=== PATIENT | male | born 1995 | race Caucasian/White ===

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

== ENCOUNTER 2017-02-17 17:48 | Emergency (ER) | payer OTHER ==
[~2017-02-17] VITALS: Ht 182.9 cm; Wt 91.0 kg
[~2017-02-17 17:48] MED LIST changes: -DICL50TA3 PO; -ROBA750T PO
[2017-02-17 17:49] VITALS: BP 114/65; PULSE 107; RESP 15; TEMP 97.9; O2SAT 100
--- NOTE | 2017-02-17 18:11 | PD ---
HPI Chief Complaint: Cold / Flu Symptoms Time Seen by Provider: 18:09 Travel History International Travel<30 days: No Contact w/Intl Traveler<30days: No Traveled to known affect area: No History of Present Illness HPI 21-year-old male with history of sudden onset body aches, abdominal discomfort, and vomiting. Patient feels he is dehydrated. Patient has had chills but denies significant fever. He has no upper respiratory symptoms. He has no chest pain or shortness of breath. Patient states he last urinated about 4 hours ago and it was dark. His pain is generalized throughout the abdomen. He denies any blood in his vomitus or diarrhea. He denies pain with urination. His abdominal pain is 8 out of 10. It is cramping In nature. He is allergic to Keflex. PFSH Past Medical History ADHD: Yes Cancer: No Cardiovascular Problems: No Diabetes: No Diminished Hearing: No Endocrine: No Genitourinary: No Hepatitis: No Hiatal Hernia: No Immune Disorder: No Musculoskeletal: Yes (occ dizziness upon standing could be low blood pressure) Neurologic: No Psychiatric: Yes (add) Reproductive: No Respiratory: No Integumentary: Yes (CYST UNDER LEFT ARM BEING FOLLOWED) Immunizations Current: Yes Thyroid Disease: No Past Surgical History AICD: No Genitourinary Surgery: Yes (Hydrocele) Joint Replacement: No Pacemaker: No Other Surgery: Yes (right hydrocele) Social History Alcohol Use: Yes Tobacco Use: Yes Substance Use: Yes Allergies-Medications (Allergen,Severity, Reaction): Coded Allergies: cephalexin (Unverified Adverse Reaction, Severe, N/V, 02/17/17) Reported Meds & Prescriptions Reported Meds & Active Scripts Active Reported Adderall (Amphetamine-Dextroamphetamine) 20 Mg Tab 20 Mg PO DAILY Avoid late evening doses. Space doses at least 4 to 6 hours if more than once/day dosing. Review of Systems Except as stated in HPI: all other systems reviewed are Neg General / Constitutional: Positive: Chills, No: Fever Eyes: No: Visual changes HENT: No: Headaches Cardiovascular: No: Chest Pain or Discomfort Respiratory: No: Cough, Shortness of Breath, Wheezing Gastrointestinal: Positive: Nausea, Vomiting, Abdominal Pain, Indigestion, Loss of Appetite, No: Diarrhea, Hematemesis, Hematochezia, Constipation, Changes in Bowel Habits, Dysphagia Genitourinary: No: Dysuria Musculoskeletal: No: Pain Skin: No Rash Neurologic: No: Weakness Psychiatric: No: Depression Endocrine: No: Polydipsia Hematologic/Lymphatic: No: Easy Bruising Physical Exam Narrative GENERAL: Patient appears ill and in moderate distress. SKIN: Warm. Decreased pallor. Mild diaphoresis. HEAD: Atraumatic. Normocephalic. EYES: Pupils equal and round. No scleral icterus. No injection or drainage. ENT: No nasal bleeding or discharge. Mucous membranes pink and moist. Pharynx is unremarkable. Airway is patent. NECK: Trachea midline. Supple and Nontender. CARDIOVASCULAR: Regular rate and rhythm. No murmurs gallops or rubs. RESPIRATORY: No accessory muscle use. Clear to auscultation. Breath sounds equal bilaterally. GASTROINTESTINAL: Abdomen soft, mild to moderate diffuse tenderness, nondistended. Bowel sounds present in all quadrants. No CVA tenderness. No point tenderness or rebound. Hepatic and splenic margins not palpable. MUSCULOSKELETAL: Extremities without clubbing, cyanosis, or edema. No obvious deformities. NEUROLOGICAL: Awake and alert. No obvious cranial nerve deficits. Motor grossly within normal limits. Five out of 5 muscle strength in the arms and legs. Normal speech. PSYCHIATRIC: Appropriate mood and affect; insight and judgment normal. Data Data Last Documented VS Vital Signs Date Time Temp Pulse Resp B/P (MAP) Pulse Ox O2 Delivery O2 Flow Rate FiO2 02/17/17 18:51 100 02/17/17 17:49 97.9 107 15 Orders Orders Complete Blood Count With Diff (02/17/17 18:17) Comprehensive Metabolic Panel (02/17/17 18:17) Lipase (02/17/17 18:17) Prothrombin Time / Inr (Pt) (02/17/17 18:17) Act Partial Throm Time (Ptt) (02/17/17 18:17) Urinalysis - C+S If Indicated (02/17/17 18:17) Iv Access Insert/Monitor (02/17/17 18:17) Ecg Monitoring (02/17/17 18:17) Oximetry (02/17/17 18:17) Ondansetron Inj (Zofran Inj) (02/17/17 18:30) Sodium Chlor 0.9% 1000 Ml Inj (Ns 1000 M (02/17/17 18:17) Sodium Chloride 0.9% Flush (Ns Flush) (02/17/17 18:30) Famotidine Inj (Pepcid Inj) (02/17/17 18:30) Ketorolac Inj (Toradol Inj) (02/17/17 18:30) Abdomen, Flat & Upright (02/17/17 18:17) Influenzae A/B Antigen (02/17/17 18:17) MDM Medical Decision Making Medical Screen Exam Complete: Yes Emergency Medical Condition: Yes Differential Diagnosis Nausea and vomiting. Influenza. Dehydration. Ileus. Narrative Course Patient is stable at time of exam. Labs ordered including CBC, CMP, lipase, urinalysis, coagulation studies. Rapid influenza as well. IV access is obtained patient is given 30 mg Toradol IV as well as 4 mg Zofran IV, and 1000 mL was normal saline bolus. Abdominal flat and upright x-ray is ordered. 1900 hrs., labs and x-ray are still pending. Patient care is assumed by Ariel Walker [facility] and final disposition will be determined by him. Condition: Stable Lupillo Keen Feb 17, 2017 18:11
[2017-02-17] MEDS ORDERED: SODIUM CHLOR 0.9% 1000 ML INJ 1,000 ML IV SCH (18:17)
[2017-02-17] MEDS ORDERED: FAMOTIDINE 20 MG/2 ML VIAL IV PUSH ONE (18:30)
[2017-02-17] MEDS ORDERED: KETOROLAC TROMETHAMINE 30 MG/ML (IVP) VIAL IVP ONE (18:30)
[2017-02-17] MEDS ORDERED: ONDANSETRON HCL 4 MG/2 ML VIAL IVP ONE (18:30)
[2017-02-17] MEDS ORDERED: SODIUM CHLORIDE 0.9% FLUSH 10 ML FLUSH IV FLUSH PRN (18:30)
[2017-02-17 18:51] VITALS: O2SAT 100
--- NOTE | 2017-02-17 18:53 | RADRPT ---
EXAM DATE/TIME: 02/17/2017 18:28 [place] COMPARISON: No previous studies available for comparison. INDICATIONS : Vomiting for one day. Abdomen pain. MEDICAL HISTORY : None. SURGICAL HISTORY : None. ENCOUNTER: Initial ACUITY: 1 day PAIN SCORE: 7/10 LOCATION: Bilateral abdomen. FINDINGS: The bowel gas is nonspecific. There are no signs of obstruction or free air for technique. No defini te calcified stones are identified for technique. CONCLUSION: Nonspecific abdomen. Kristen Pierre MD on February 17, 2017 at 18:51 Board Certified Radiologist. This report was verified electronically.
[2017-02-17 19:12] LABS: AUTOMATED NEUTROPHIL # 11.4 TH/MM3 (1.8-7.7); BASOPHIL % 0.2 % (0.0-2.0); HEMATOCRIT 43.6 % (39.0-51.0); LYMPH % 1.1 % (9.0-44.0); LYMPHOCYTE # 0.1 TH/MM3 (1.0-4.8); MEAN CELL VOLUME 90.7 FL (80.0-100.0); MEAN CORPUSCULAR HEMOGLOBIN 31.2 PG (27.0-34.0); MEAN CORPUSCULAR HGB CONC 34.4 % (32.0-36.0); MEAN PLATELET VOLUME 7.7 FL (7.0-11.0); MONO % 6.9 % (0.0-8.0); MONOCYTE # 0.9 TH/MM3 (0-0.9); NEUT % 91.8 % (16.0-70.0); PLATELET COUNT 240 TH/MM3 (150-450); RED BLOOD COUNT 4.81 MIL/MM3 (4.50-5.90); RED CELL DISTRIBUTION WIDTH 12.5 % (11.6-17.2); WHITE BLOOD COUNT 12.4 TH/MM3 (4.0-11.0)
[2017-02-17 19:18] LABS: INTERNATIONAL NORMALIZED RATIO 1.1 RATIO; PROTHROMBIN TIME - PATIENT 11.2 SEC (9.8-11.6)
[2017-02-17 19:24] VITALS: BP 134/63; PULSE 100; RESP 20; O2SAT 100
[2017-02-17 19:26] LABS: ALBUMIN 4.6 GM/DL (3.4-5.0); AST (GOT) 25 U/L (15-39); BICARBONATE 25.4 MEQ/L (21.0-32.0); BLOOD UREA NITROGEN 10 MG/DL (7-18); CALCIUM 9.5 MG/DL (8.5-10.1); CHLORIDE 102 MEQ/L (98-107); CREATININE 0.94 MG/DL (0.60-1.30); GLOMERULAR FILTRATION RATE 103 ML/MIN (>89); GLUCOSE,RANDOM 94 MG/DL (74-106); LIPASE 80 U/L (73-393); SODIUM (NA) 137 MEQ/L (136-145)
[2017-02-17 19:27] LABS: ALT (GPT) 93 U/L (9-52)
[2017-02-17 19:29] LABS: ALKALINE PHOSPHATASE 91 U/L (45-117); TOTAL BILIRUBIN ADULT 1.1 MG/DL (0.2-1.0)
[2017-02-17 19:33] LABS: BACTERIA, URINE RARE /hpf; BILIRUBIN, URINE NEG (NEG); BLOOD, URINE NEG (NEG); GLUCOSE,URINE NEG (NEG); KETONE, URINE 150 mg/dL (NEG); MUCUS URINE FEW /lpf (OCC); NITRITE,URINE NEG (NEG); PH, URINE 7.5 (5.0-8.5); SQUAMOUS EPITHELIAL CELL URINE <1 /hpf (0-5); URINE COLOR YELLOW (YELLW/STRAW); URINE LEUKOCYTE ESTERASE NEG (NEG)
--- NOTE | 2017-02-17 19:42 | PD ---
Physical Exam Date Seen by Provider: Feb 17, 2017 Time Seen by Provider: 19:40 Data Data Last Documented VS Vital Signs Date Time Temp Pulse Resp B/P (MAP) Pulse Ox O2 Delivery O2 Flow Rate FiO2 02/17/17 19:24 100 20 134/63 (86) 100 Room Air 02/17/17 17:49 97.9 Orders Orders Complete Blood Count With Diff (02/17/17 18:17) Comprehensive Metabolic Panel (02/17/17 18:17) Lipase (02/17/17 18:17) Prothrombin Time / Inr (Pt) (02/17/17 18:17) Act Partial Throm Time (Ptt) (02/17/17 18:17) Urinalysis - C+S If Indicated (02/17/17 18:17) Iv Access Insert/Monitor (02/17/17 18:17) Ecg Monitoring (02/17/17 18:17) Oximetry (02/17/17 18:17) Ondansetron Inj (Zofran Inj) (02/17/17 18:30) Sodium Chlor 0.9% 1000 Ml Inj (Ns 1000 M (02/17/17 18:17) Sodium Chloride 0.9% Flush (Ns Flush) (02/17/17 18:30) Famotidine Inj (Pepcid Inj) (02/17/17 18:30) Ketorolac Inj (Toradol Inj) (02/17/17 18:30) Abdomen, Flat & Upright (02/17/17 18:17) Influenzae A/B Antigen (02/17/17 18:17) Ed Discharge Order (02/17/17 19:40) Labs Laboratory Tests Test 02/17/17 18:45 02/17/17 19:15 White Blood Count 12.4 TH/MM3 Red Blood Count 4.81 MIL/MM3 Hemoglobin 15.0 GM/DL Hematocrit 43.6 % Mean Corpuscular Volume 90.7 FL Mean Corpuscular Hemoglobin 31.2 PG Mean Corpuscular Hemoglobin Concent 34.4 % Red Cell Distribution Width 12.5 % Platelet Count 240 TH/MM3 Mean Platelet Volume 7.7 FL Neutrophils (%) (Auto) 91.8 % Lymphocytes (%) (Auto) 1.1 % Monocytes (%) (Auto) 6.9 % Eosinophils (%) (Auto) 0.0 % Basophils (%) (Auto) 0.2 % Neutrophils # (Auto) 11.4 TH/MM3 Lymphocytes # (Auto) 0.1 TH/MM3 Monocytes # (Auto) 0.9 TH/MM3 Eosinophils # (Auto) 0.0 TH/MM3 Basophils # (Auto) 0.0 TH/MM3 CBC Comment DIFF FINAL Differential Comment Prothrombin Time 11.2 SEC Prothromb Time International Ratio 1.1 RATIO Activated Partial Thromboplast Time 26.2 SEC Blood Urea Nitrogen 10 MG/DL Creatinine 0.94 MG/DL Random Glucose 94 MG/DL Total Protein 8.0 GM/DL Albumin 4.6 GM/DL Calcium Level 9.5 MG/DL Alkaline Phosphatase 91 U/L Aspartate Amino Transf (AST/SGOT) 25 U/L Alanine Aminotransferase (ALT/SGPT) 93 U/L Total Bilirubin 1.1 MG/DL Sodium Level 137 MEQ/L Potassium Level 4.3 MEQ/L Chloride Level 102 MEQ/L Carbon Dioxide Level 25.4 MEQ/L Anion Gap 10 MEQ/L Estimat Glomerular Filtration Rate 103 ML/MIN Lipase 80 U/L Urine Color YELLOW Urine Turbidity CLEAR Urine pH 7.5 Urine Specific [place] 1.027 Urine Protein 30 mg/dL Urine Glucose (UA) NEG mg/dL Urine Ketones 150 mg/dL Urine Occult Blood NEG Urine Nitrite NEG Urine Bilirubin NEG Urine Urobilinogen 4.0 MG/DL Urine Leukocyte Esterase NEG Urine RBC 1 /hpf Urine WBC 1 /hpf Urine Squamous Epithelial Cells <1 /hpf Urine Bacteria RARE /hpf Urine Mucus FEW /lpf Microscopic Urinalysis Comment CULT NOT INDICATED MDM Medical Record Reviewed: Yes Supervised Visit with KYLE: No Interpretation(s) Laboratory Tests Test 02/17/17 18:45 02/17/17 19:15 White Blood Count 12.4 TH/MM3 Red Blood Count 4.81 MIL/MM3 Hemoglobin 15.0 GM/DL Hematocrit 43.6 % Mean Corpuscular Volume 90.7 FL Mean Corpuscular Hemoglobin 31.2 PG Mean Corpuscular Hemoglobin Concent 34.4 % Red Cell Distribution Width 12.5 % Platelet Count 240 TH/MM3 Mean Platelet Volume 7.7 FL Neutrophils (%) (Auto) 91.8 % Lymphocytes (%) (Auto) 1.1 % Monocytes (%) (Auto) 6.9 % Eosinophils (%) (Auto) 0.0 % Basophils (%) (Auto) 0.2 % Neutrophils # (Auto) 11.4 TH/MM3 Lymphocytes # (Auto) 0.1 TH/MM3 Monocytes # (Auto) 0.9 TH/MM3 Eosinophils # (Auto) 0.0 TH/MM3 Basophils # (Auto) 0.0 TH/MM3 CBC Comment DIFF FINAL Differential Comment Prothrombin Time 11.2 SEC Prothromb Time International Ratio 1.1 RATIO Activated Partial Thromboplast Time 26.2 SEC Blood Urea Nitrogen 10 MG/DL Creatinine 0.94 MG/DL Random Glucose 94 MG/DL Total Protein 8.0 GM/DL Albumin 4.6 GM/DL Calcium Level 9.5 MG/DL Alkaline Phosphatase 91 U/L Aspartate Amino Transf (AST/SGOT) 25 U/L Alanine Aminotransferase (ALT/SGPT) 93 U/L Total Bilirubin 1.1 MG/DL Sodium Level 137 MEQ/L Potassium Level 4.3 MEQ/L Chloride Level 102 MEQ/L Carbon Dioxide Level 25.4 MEQ/L Anion Gap 10 MEQ/L Estimat Glomerular Filtration Rate 103 ML/MIN Lipase 80 U/L Urine Color YELLOW Urine Turbidity CLEAR Urine pH 7.5 Urine Specific [place] 1.027 Urine Protein 30 mg/dL Urine Glucose (UA) NEG mg/dL Urine Ketones 150 mg/dL Urine Occult Blood NEG Urine Nitrite NEG Urine Bilirubin NEG Urine Urobilinogen 4.0 MG/DL Urine Leukocyte Esterase NEG Urine RBC 1 /hpf Urine WBC 1 /hpf Urine Squamous Epithelial Cells <1 /hpf Urine Bacteria RARE /hpf Urine Mucus FEW /lpf Microscopic Urinalysis Comment CULT NOT INDICATED Last 24 hours Impressions Abdomen X-Ray 02/17/17 [id number] Signed Impressions: Service Date/Time: Friday, February 17, 2017 18:28 - CONCLUSION: Nonspecific abdomen. K. Kwaku Pierre MD Influenza: Positive for influenza A Differential Diagnosis MDM: High Differential diagnoses: Pneumonia, bronchitis, URI, asthma, RAD, legionnaire's disease, SARS, ARDS, influenza, bronchiolitis, RSV,PE,CHF Narrative Course This is influenza A Patient is feeling much improved with fluids Diagnosis Primary Impression: Influenza A Patient Instructions: General Instructions Departure Forms: Tests/Procedures, Work Release Special Instructions: No work 5 days Additional Instruction: Rest. Increase fluids. 3 Advil every 6 hours. Zofran for nausea and vomiting. Follow-up with a medical doctor in one week. Return to the ER for problems. Med/Other Pt SpecificInfo: Prescription(s) given Disposition: 01 DISCHARGE HOME Condition: Mauro Perdomo Feb 17, 2017 19:42
[2017-02-17] MEDS ORDERED: ZOFR8TAB4 SL (19:43)
[2017-02-17 19:51] VITALS: BP 132/60
== END 2017-02-17 20:01 | disposition home or self-care (01) ==
LOC: NEPD 17:48
DX: J10.1 Influenza due to other identified influenza virus with other respiratory manifestations (principal); F90.9 Attention-deficit hyperactivity disorder, unspecified type; R10.9 Unspecified abdominal pain; Z72.0 Tobacco use
CPT/HCPCS: 74020; 80053; 81001; 83690; 85025; 85610; 85730; 87804; 96361; 96374; 96375; 99284; J1885; J2405; J7030